=== PATIENT | male | born 1985 | race Hispanic/Latino ===

== ENCOUNTER 2024-02-16 14:15 | Emergency (ER) | payer OTHER, SELFPAY ==
[2024-02-16 14:27] VITALS: BP 146/106
[2024-02-16 14:30] LABS: Glucose - Point of Care 164 mg/dl (70-99)
[2024-02-16 14:52] LABS: % Basophils 0.7 % (0-2); % Immature Granulocytes 0.6 % (0-0.5); % Lymphocytes 34.5 % (20.5-51.1); % Monocytes 10.1 % (1.7-9.3); % Neutrophils 52.1 % (42.2-75.2); Absolute Basophils 0.1 10^3/uL (0-0.2); Absolute Eosinophils 0.1 10^3/uL (0-0.7); Absolute Lymphocytes 2.5 10^3/uL (1.2-3.4); Absolute Monocytes 0.7 10^3/uL (0.1-0.6); Absolute Neutrophils 3.7 10^3/uL (1.4-6.5); Hematocrit 47.4 % (39.0-52.0); Hemoglobin 16.6 g/dL (13.0-18.0); Mean Corpuscular Hgb 27.1 pg (27.0-31.0); Mean Corpuscular Volume 77.3 fL (80.0-94.0); Mean Platelet Volume 8.9 fL (7.4-10.4); Nucleated Red Blood Cells % 0 % (-); Platelet Count 234 10^3/uL (130-400); Red Blood Cell Count 6.13 10^6/uL (4.70-6.10); Red Cell Dist. Width 12.9 % (11.5-14.5); White Blood Cell Count 7.1 10^3/uL (4.8-10.8)
[2024-02-16 15:05] LABS: ALT (SGPT) 67 U/L (0-50); AST (SGOT) 40 U/L (17-59); Albumin 5.3 g/dl (3.5-5.0); Alkaline Phosphatase 71 U/L (38-126); Blood Urea Nitrogen 21 mg/dl (9-20); Calcium 10.4 mg/dl (8.4-10.2); Carbon Dioxide 22 mmol/L (22-30); Chloride 100 mmol/L (98-107); Glucose 171 mg/dl (70-99); Potassium 4.1 mmol/L (3.5-5.1); Sodium 138 mmol/L (135-145); Total Bilirubin 0.9 mg/dl (0.2-1.3); Total Protein 8.3 g/dl (6.3-8.2); eGFR > 60.00
[2024-02-16 16:04] VITALS: BMI 37.0
--- NOTE | 2024-02-16 16:18 | ED.GENMED ---
History of Present Illness
General
Chief Complaint: Blood Sugar Problem
Source: patient
Time Seen by Provider: 02/16/24 16:00
History of Present Illness
History of Present Illness:
38yoM with a history of hypertension presenting for evaluation of elevated blood sugar. Patient had a pre-employment physical yesterday. A fingerstick glucose was checked as a part of the physical exam which was elevated at 298. He has no prior
diagnosis of diabetes. His blood pressure was also elevated at 150s over 100s. He was told to follow-up with his PCP to get his blood sugar under control before he would be cleared to start work. He went to his PCP today who sent him for
outpatient blood work including an A1c which is still pending. He was started on 5 mg amlodipine daily. Patient's health insurance lapses tomorrow and he decided to come to the ED to obtain diabetic medications. Patient reports increased thirst
and urination over the past year. He is also having upset stomach but denies other symptoms.
Phy Exam
General Physical Exam
General Presentation: well appearing and no apparent distress
General age: appears stated age
General Skin: warm and dry
General Habitus: normal
General Mental: alert
ENT Exam
ENT Exam: normocephalic
Cardiovascular Exam
Cardiovascular Exam: regular rate/rhythm and no murmur
Pulmonary Exam
Pulmonary Exam: lungs clear, no respiratory distress, no crackles and no wheezing
Gastrointestinal Exam
Gastrointestinal Exam: non tender, soft and non distended
Chelsey Coma Scale
Eye Opening: Spontaneous
Verbal Response: Oriented
Motor Response: Obeys Commands
GCS Total Score: 15
Skin Exam
Skin Exam: normal color and warm/dry
Psychiatric Exam
Psychiatric Exam: normal mood/affect
Course
Orders/Labs/Results
Orders:
Orders
02/16/24 14:42
Complete Blood Count/With Diff Urgent
Comprehensive Metabolic Panel Urgent
Abnormal Lab Results
02/16/24 02/16/24
14:29 14:42
RBC 6.13 H 10^6/uL
(4.70-6.10)
MCV 77.3 L fL
(80.0-94.0)
Absolute Monos (auto) 0.7 H 10^3/uL
(0.1-0.6)
Immature Gran % 0.6 H %
(0-0.5)
Monocytes % 10.1 H %
(1.7-9.3)
BUN 21 H mg/dl
(9-20)
Glucose 171 H mg/dl
(70-99)
Calcium 10.4 H mg/dl
(8.4-10.2)
ALT 67 H U/L
(0-50)
Total Protein 8.3 H g/dl
(6.3-8.2)
Albumin 5.3 H g/dl
(3.5-5.0)
POC Glucose 164 H mg/dl
(70-99)
02/16/24 14:42
02/16/24 14:42
Vital Signs
Initial and Last Documented VS:
Initial Vital Signs
Temp Pulse Resp BP Pulse Ox
98.3 F 91 16 146/106 98
02/16/24 14:27 02/16/24 14:27 02/16/24 14:27 02/16/24 14:27 02/16/24 14:27
Last Documented Vital Signs
Temp Pulse Resp BP Pulse Ox
98.3 F 109 18 155/109 98
02/16/24 14:27 02/16/24 16:22 02/16/24 16:22 02/16/24 16:22 02/16/24 14:27
MDM/Problems Addressed
Differential Diagnosis Includes:
38yoM here with hyperglycemia found on a pre-employment physical yesterday. No prior history of diabetes. C/o increased thirst/urination x 1 year. Otherwise asymptomatic. VSS. He is well appearing in no distress. Exam is reassuring. Differential
diagnosis includes but is not limited to: type 2 diabetes, hyperglycemia, DKA
CBC and CMP obtained in triage. Glucose 171. Bicarb is normal which rules out DKA. He is stable for discharge. Patient had an HbA1c checked as an outpatient earlier today which is pending. Patient is requesting to be started on medications today as
he loses his health insurance tomorrow. He was given a prescription for metformin 500mg BID x 30 days. He was advised to f/u with PCP and ED return precautions discussed. He expressed understanding and is agreeable to plan. He was discharged in
stable condition.
*Critical Care Note
Total Time (30-74mins, 75-104mins- exclusive of procedures): Not Applicable
ED Attending Note
-
Portions of this chart may have been created with voice recognition software.� Occasional wrong word or��sound alike� substitutions may have occurred due to the inherent limitations of voice recognition software.
Discharge Plan
Departure
Patient Disposition: Home (Routine Discharge)
Date of Disposition: 02/16/24
Time of Disposition: 16:21
Patient with high blood pressure during this ER visit?: Yes
Discharge Problem:
Hyperglycemia
Instructions: Type 2 Diabetes (DC), Metformin
Prescriptions:
New
metformin 500 mg tablet
500 mg PO BID Qty: 60 0RF
Referrals:
[facility] [Provider Group]
[facility] [Outside]
Activity Restrictions/Additional Instructions:
Take metformin as prescribed.
Please follow-up with your family doctor tomorrow and let them know that you were started on this medication.
Return to the ER with any new or worsening symptoms.
Interventions
Interventions:
*Risk Screen - Suicide Last Done: 02/16/24 14:27
*General Assessment Last Done: 02/16/24 16:05
*Neglect/Abuse Screening Last Done: 02/16/24 14:27
ED- Fall Risk Assessment Last Done: 02/16/24 16:15
*ED COVID-19 Vaccine History Last Done: 02/16/24 16:05
*Nursing Disposition Last Done: 02/16/24 16:58
ED- Neurological Assessment Last Done: 02/16/24 16:15
Discharge Date and Time
Discharge Date/Time: 02/16/24 16:58
Print Language: CYPRIOT
[2024-02-16 16:22] VITALS: BP 155/109
== END 2024-02-16 16:58 | disposition home or self-care (01) ==
LOC: EMR 14:15
PROVIDERS: EMERGENCY PHYSICIAN Emergency Medicine
DX: R73.9 Hyperglycemia, unspecified (principal); I10 Essential (primary) hypertension
CPT/HCPCS: 99283; 80053; 82962; 85025

== ENCOUNTER → 2024-06-25 08:09 | Outpatient (REF) | payer OTHER, SELFPAY | LOC: DHSLP 08:09 | PROVIDERS: ATTENDING PHYSICIAN Internal Medicine Critical Care Medicine | DX: G47.33 Obstructive sleep apnea (adult) (pediatric) (principal) | CPT/HCPCS: 95800 ==